=== PATIENT | female | born 1960 | race Caucasian/White ===

== ENCOUNTER 2019-04-20 08:08 | Emergency (ER) | payer MEDICARE, OTHER ==
[2019-04-20 08:17] VITALS: BP 123/66; PULSE 76; TEMP 97.7; BMI 31.1
[2019-04-20] MEDS ORDERED: FAMOTIDINE 20 MG/50 ML IVPB 20 MG/50 ML MG IVPB ONE ×2 (09:28→10:15)
[2019-04-20] MEDS ORDERED: DICYCLOMINE HCL 20 MG TABLET PO ONE (09:28)
[2019-04-20] MEDS ORDERED: ONDANSETRON 4 MG/2 ML VIAL IVPUSH ONE (09:28)
[2019-04-20] MEDS ORDERED: SODIUM CHLORIDE 1,000 ML IV STA (09:28)
--- NOTE | 2019-04-20 09:40 | PDOC ---
History of Present Illness - General History Source: Patient Exam Limitations: No Limitations - History of Present Illness Initial Comments: 04/20/19 09:35 Patient is a 58-year-old female who presents to the ED with complaint of epigastric and left upper quadrant abdominal pain that started at 3 AM. She states the pain woke her up out of sleep. She admits that she felt nauseated and has vomited twice. She denies any blood in her vomitus. She has not had any bowel movements. She denies any fevers or chills. She denies any previous abdominal surgeries. She has not taken anything for pain. She has a history of high blood pressure. She is allergic to hydrocodone and shellfish. She denies any dysuria or hematuria. <Patti Quintero - Last Filed: 04/20/19 17:07> <Ruslan Thurman - Last Filed: 04/21/19 13:13> - General Chief Complaint: Pain, Acute Stated Complaint: ABD. PAIN Time Seen by Provider: 04/20/19 09:05 Past History - Past Medical History COPD: No Dialysis: No HTN: Yes Kidney Stones: No - Surgical History Gastric Stapling: No Lung Surgery: No - Immunization History Immunization Up to Date: No - Psycho Social/Smoking Cessation Hx Smoking History: Never smoked Have you smoked in the past 12 months: No Information on smoking cessation initiated: No Hx Alcohol Use: No Drug/Substance Use Hx: No Substance Use Type: None <Patti Quintero - Last Filed: 04/20/19 17:07> <Ruslan Thurman - Last Filed: 04/21/19 13:13> - Past Medical History Allergies/Adverse Reactions: Allergies Allergy/AdvReac Type Severity Reaction Status Date / Time hydrocodone Allergy Verified 03/08/14 07:23 shellfish derived Allergy Verified 03/08/14 07:23 Home Medications: Ambulatory Orders Duloxetine HCl [Cymbalta -] 60 mg PO DAILY 03/08/14 Amlodipine Besylate 10 mg PO DAILY 02/06/16 Review of Systems - Review of Systems Comments:: 04/20/19 09:36 - Review of Systems Able to Perform ROS?: Yes Constitutional: No: Fever, Chills, Loss of Appetite, Night Sweats, Weakness HEENTM: No: Eye Pain, Vision changes, Ear Pain, Throat Pain, Throat Swelling, Mouth Pain, Difficulty Swallowing Respiratory: No: Cough, Shortness of Breath, Wheezing, Sputum Production Cardiac (ROS): No: Chest Pain, Chest Tightness, Palpitations, Irregular Heart Beat, Edema ABD/GI: No: Nausea, Diarrhea, positive: Vomiting, Abdominal Pain : No Dysuria, No Hematuria, No Frequency, No Urgency Musculoskeletal: No: Muscle Pain, Back Pain, Joint Pain, Muscle Weakness, Neck Pain Integumentary: No: Lesions, Rash Neurological: No: Headache, Numbness, Tingling, Weakness, Speech Difficulties <LeonPatti paez D - Last Filed: 04/20/19 17:07> *Physical Exam - Vital Signs Last Vital Signs Temp Pulse Resp BP Pulse Ox 97.7 F 76 16 123/66 99 04/20/19 08:15 04/20/19 08:15 04/20/19 08:15 04/20/19 08:15 04/20/19 08:15 - Physical Exam 04/20/19 09:36 - Physical Exam General Appearance: Nourished, Appropriately Dressed, No Distress HEENT: EOMI, Normal Voice, No Muffled/Hoarse voice, No Nasal Congestion, No Rhinorrhea, Hearing Grossly Normal Neck: Supple, No Lymphadenopathy (R), No Lymphadenopathy (L), No Rigidity, No Decreased range of motion Respiratory/Chest: Lungs Clear, Normal Breath Sounds. No Respiratory Distress, No Accessory Muscle Use Cardiovascular: Regular Rhythm, Regular Rate, S1, S2 Gastrointestinal/Abdominal: Normal Bowel Sounds, Soft. No Guarding, No Rebound , No Rigidity; positive epigastric and left upper quadrant abdominal tenderness to palpation. No right upper quadrant tenderness to palpation. Negative wilson' s sign Musculoskeletal: Normal Inspection. No Decreased Range of Motion Extremity: Normal Capillary Refill, Normal Inspection Integumentary: Normal Color, Dry. No Rash Neurologic: supervisor residential II-XII NML intact, Fully Oriented, Alert, Normal Mood/Affect, Normal Response <Leon,Patti D - Last Filed: 04/20/19 17:07> - Vital Signs Last Vital Signs Temp Pulse Resp BP Pulse Ox 97.7 F 76 16 123/66 99 04/20/19 08:15 04/20/19 08:15 04/20/19 08:15 04/20/19 08:15 04/20/19 08:15 <Cuca,Ruslan - Last Filed: 04/21/19 13:13> ED Treatment Course - LABORATORY CBC & Chemistry Diagram: 04/20/19 09:50 04/20/19 09:50 - RADIOLOGY Radiology Studies Ordered: Category Date Time Status ABDOMEN & PELVIS CT WITH CONTR [CT] Stat CT Scan 04/20/19 09:30 Ordered <Patti Quintero - Last Filed: 04/20/19 17:07> - LABORATORY CBC & Chemistry Diagram: 04/20/19 09:50 04/20/19 09:50 - ADDITIONAL ORDERS Additional order review: 04/20/19 09:50 RBC 4.64 MCV 82.0 MCHC 32.6 RDW 13.4 MPV 8.4 Neutrophils % 68.3 Lymphocytes % 25.5 D Monocytes % 5.0 Eosinophils % 0.8 D Basophils % 0.4 - Medications Given in the ED: ED Medications Discontinued Medications Generic Name Dose Route Start Last Admin Trade Name Freq PRN Reason Stop Dose Admin Dicyclomine HCl 20 mg 04/20/19 09:28 04/20/19 10:27 Bentyl - PO 04/20/19 09:29 20 mg ONCE ONE Administration Famotidine/Sodium Chloride 20 mg in 50 mls @ 100 mls/hr 04/20/19 09:28 10:27 Pepcid 20 Mg Premixed Ivpb - IVPB 04/20/19 09:57 100 mls/hr ONCE ONE Administration Sodium Chloride 1,000 mls @ 1,000 mls/hr 04/20/19 09:28 04/20/19 10:27 Normal Saline - IV 04/20/19 10:27 1,000 mls/hr ASDIR STA Administration Ondansetron HCl 4 mg 04/20/19 09:28 04/20/19 10:27 Zofran Injection IVPUSH 04/20/19 09:29 4 mg ONCE ONE Administration <Ruslan Thurman - Last Filed: 04/21/19 13:13> Medical Decision Making - Medical Decision Making 04/20/19 09:38 Assessment: Patient is a 58-year-old female with epigastric and left upper quadrant abdominal pain. Plan: -Labs ordered -EKG ordered -Pepcid, Bentyl and Zofran ordered -Will reassess 04/20/19 11:37 The patient states she is feeling much better after the medication the fluids. She is still pending her CT scan. Will reassess after CT scan is completed. 04/20/19 15:[address] Fontenot of surgery for consultation. The patient has what appears to be cholecystitis on US with a Gall bladder neck stone. The findings are relatively unchanged from studies in 2016. 04/20/19 15:39 Dr. Fontenot returned call, she states that the patient's ultrasound is unchanged from 2016 and she reviewed it herself. The patient's labs are all within normal limits and secondary to her not having any pain, she feels this is not something that requires emergent surgery or intervention. Dr. Fontenot will come down and evaluate the patient. 04/20/19 16:51 The patient was seen by Dr. Fontenot and she believes that secondary to the patient not having any pain, her labs being within normal limits and her studies being unchanged from 2016, this does not warrant an emergent cholecystectomy. The patient should follow-up with her primary doctor and potentially a GI doctor for further evaluation and treatment. If the patient's pain returns she can return to the ED for repeat evaluation. The patient will try a p.o. challenge at this time and if she is able to tolerate p.o. fluids she can be discharged home with follow-up to her primary doctor. The patient understands and agrees with this treatment and plan. 04/20/19 17:07 The patient tolerated fluids in the ED and she is stable for discharge. She should follow-up with her primary doctor within 1 to 2 days for repeat evaluation. She understands and agrees with this treatment plan and she is stable for discharge. <Patti Quintero D - Last Filed: 04/20/19 17:07> - Medical Decision Making 04/21/19 13:04 58 years old presents to the ED with epigastric discomfort received GI cocktail and imaging Epigastric discomfort has resolved Her physical examination was notable for a benign abdominal exam no rebound no guarding no right upper quadrant pain no tenderness to palpation. Her laboratory analysis showed no elevated WC her LFTs were normal her ultrasound did show a stone with thickening of the gallbladder wall which was unchanged from a previous ultrasound surgery was consulted given no pain no laboratory abnormalities and a normal abdominal examination decision was made that this is most likely a chronic process she will follow-up as an outpatient she will return to the ED immediately for any fever severe worsening pain or for any concerns Findings, the need for follow-up and strict return instructions discussed with patient. <CucaRuslan - Last Filed: 04/21/19 13:13> Discharge - Discharge Information Problems reviewed: Yes <Patti Quintero - Last Filed: 04/20/19 17:07> <Ruslan Thurman - Last Filed: 04/21/19 13:13> - Discharge Information Clinical Impression/Diagnosis: Epigastric abdominal pain Condition: Stable Disposition: HOME - Follow up/Referral Referrals: Ed Márquez MD [Primary Care Provider] - 2 Days - Patient Discharge Instructions Patient Printed Discharge Instructions: DI for Abdominal Pain-Adult, DI for Biliary Colic Additional Instructions: Eat a bland diet and avoid fatty, acidic, fried, greasy or caffeinated foods. Be sure to see your primary doctor within 1 to 2 days for repeat evaluation. You may need to see a GI doctor for further evaluation. You may need your gallbladder removed at some point and can follow-up with an outpatient surgeon as needed. Return to the emergency department for high fevers, shaking chills, profuse vomiting or any other worsening symptoms. Print Language: THAI - Post Discharge Activity
[2019-04-20] MEDS ORDERED: DICYCLOMINE HCL 10 MG CAPSULE ONE (10:14)
[2019-04-20] MEDS ORDERED: ONDANSETRON 4 MG/2 ML VIAL ONE (10:15)
[2019-04-20 10:20] LABS: BASO % 0.4 % (0-2.0); EOS % 0.8 % (0-4.5); HEMOGLOBIN 12.4 GM/dL (10.7-15.3); LYMPH % 25.5 % (8-40); MCH 26.7 pg (25.7-33.7); MCHC 32.6 g/dl (32.0-36.0); MEAN PLT VOLUME 8.4 fl (7.5-11.1); NEUT % 68.3 % (42.8-82.8); PLATELET COUNT 303 K/MM3 (134-434); RBC 4.64 M/mm3 (3.60-5.2); RDW 13.4 % (11.6-15.6); WHITE BLOOD COUNT 6.4 K/mm3 (4.0-10.0)
[2019-04-20 10:45] LABS: ALBUMIN 4.3 g/dl (3.4-5.0); BILIRUBIN,TOTAL 0.5 mg/dL (0.2-1); BLOOD UREA NITROGEN 13.1 mg/dL (7-18); CALCIUM 9.4 mg/dL (8.5-10.1); CREATININE 0.7 mg/dL (0.55-1.3); POTASSIUM 4.3 mmol/L (3.5-5.1); TOT PROT 8.2 g/dl (6.4-8.2)
--- NOTE | 2019-04-20 14:29 | EKG ---
Test Reason : Blood Pressure : / mmHG Vent. Rate : 073 BPM Atrial Rate : 073 BPM P-R Int : 162 ms QRS Dur : 070 ms QT Int : 380 ms P-R-T Axes : 028 023 013 degrees QTc Int : 418 ms NORMAL SINUS RHYTHM NORMAL ECG NO PREVIOUS ECGS AVAILABLE Confirmed by Alberta Brownlee ([id number]) on 04/20/2019 2:29:22 PM Referred By: Confirmed By:Alberta Brownlee
--- NOTE | 2019-04-20 16:59 | CONSULT ---
Consult Consult Specialty:: General Surgery Referred by:: DIONNE Castle Reason for Consultation:: epigastric pain, LUQ tenderness, gallstone - History of Present Illness Chief Complaint: upper abdominal pain History of Present Illness: 58yo F with HTN, chronic low back pain s/p lumbar surgery, h/o laparoscopic tubal ligation, presented with epigastric pain radiating bilaterally which woke her up around 3am. She took baking soda with water, and vomited a few minutes later, but denies nausea otherwise. Had normal soft BM today. No fever or chills, no ill contacts; she denies symptoms of heartburn historically. In the ER, she is afebrile, with normal labs including wbc, LFTs and lipase. CT and US show gallbladder with a moderate sized stone in the neck, mild wall thickening and some pericholecystic fluid suggestive of cholecystitis , but images are unchanged from US 02/09, when she had same findings. CBD is upper normal at 6mm. She has had IV fluids, GI cocktail, and her pain is now gone. Surgery was asked to assess. She is seen and examined in ER, and is able to communicate in Albanian well enough. She states the pain was sharp, and worse than the pain that had brought her in 02/09, though that was also across her upper abdomen. ER exam showed LUQ and epigastric tenderness, but no RUQ tenderness. She denies nausea, and is willing to try eating. - History Source History Provided By: Patient Limitations to Obtaining History: Language Barrier (Ivorian, pt also speaks Albanian) - Past Medical History Cardio/Vascular: Yes: HTN Hepatobiliary: Yes: Cholelithiasis ...: No Psych: Yes: Depression Musculoskeletal: Yes: Chronic low back pain - Past Surgical History Past Surgical History: Yes: Tubal Ligation Additional Surgical History: lumbar spine surgery - Alcohol/Substance Use Hx Alcohol Use: No (rarely) History of Substance Use: reports: None - Smoking History Smoking history: Never smoked Have you smoked in the past 12 months: No - Social History ADL: Independent Home Medications - Allergies Allergies/Adverse Reactions: Allergies Allergy/AdvReac Type Severity Reaction Status Date / Time hydrocodone Allergy Verified 03/08/14 07:23 shellfish derived Allergy Verified 03/08/14 07:23 - Home Medications Home Medications: Ambulatory Orders Duloxetine HCl [Cymbalta -] 60 mg PO DAILY 03/08/14 Amlodipine Besylate 10 mg PO DAILY 02/06/16 Home Medications (free text): pt no longer taking Cymbalta - caused itching everywhere. uses Tylenol XS 1-2 a day for low back pain. also on Carvedilol but hasn't taken it for a few days Family Medical History Other Family History: mother with hypertension, in her sleep Review of Systems - Review of Systems Constitutional: denies: Chills, Fever Eyes: denies: Blurred Vision, Recent Change in Vision HENT: denies: Difficult Swallowing, Throat Pain Neck: denies: Swollen Glands, Tenderness Cardiovascular: denies: Chest Pain, Palpitations Respiratory: denies: Cough (denies, but had a small cough during exam), SOB Gastrointestinal: reports: Abdominal Pain (with hpi), Vomiting ((once, induced by drinking baking soda and water)). denies: Constipation, Diarrhea, Nausea ( denies) Genitourinary: denies: Burning, Dysuria Musculoskeletal: reports: Back Pain (chronic). denies: Joint Pain, Muscle Pain Integumentary: denies: Change in Color, Rash Neurological: denies: Dizziness, Headache Physical Exam Vital Signs: Vital Signs Temperature 97.7 F 04/20/19 08:15 Pulse Rate 76 04/20/19 08:15 Respiratory Rate 16 04/20/19 08:15 Blood Pressure 123/66 04/20/19 08:15 O2 Sat by Pulse Oximetry (%) 99 04/20/19 08:15 Constitutional: Yes: No Distress, Calm, Obese Eyes: Yes: Conjunctiva Clear, EOM Intact. No: Sclera Icterus HENT: Yes: Atraumatic, Normocephalic Neck: Yes: Supple, Trachea Midline Cardiovascular: Yes: Regular Rate and Rhythm Respiratory: Yes: Regular, CTA Bilaterally Gastrointestinal: Yes: Soft, Abdomen, Obese, Hypoactive Bowel Sounds, Tenderness , Epigastrium (mild/minimal). No: Tenderness ...Rectal Exam: Yes: Deferred Renal/: No: CVA Tenderness - Left, CVA Tenderness - Right Musculoskeletal: No: Back Pain (no direct tenderness), Joint Swelling Extremities: No: Cool, Cyanosis Edema: No Peripheral Pulses WNL: Yes Integumentary: No: Jaundice, Rash Neurological: Yes: Alert, Oriented. No: Unsteady Gait Psychiatric: Yes: Alert, Oriented Labs: CBC, BMP 04/20/19 09:50 04/20/19 09:50 CMP Sodium 140 mmol/L (136-145) 04/20/19 09:50 Potassium 4.3 mmol/L (3.5-5.1) 04/20/19 09:50 Chloride 107 mmol/L (98-107) 04/20/19 09:50 Carbon Dioxide 27 mmol/L (21-32) 04/20/19 09:50 Anion Gap 6 MMOL/L (8-16) L 04/20/19 09:50 BUN 13.1 mg/dL (7-18) 04/20/19 09:50 Creatinine 0.7 mg/dL (0.55-1.3) 04/20/19 09:50 Est GFR (CKD-EPI)AfAm 110.69 04/20/19 09:50 Est GFR (CKD-EPI)NonAf 95.50 04/20/19 09:50 Random Glucose 97 mg/dL (74-106) 04/20/19 09:50 Calcium 9.4 mg/dL (8.5-10.1) 04/20/19 09:50 Total Bilirubin 0.5 mg/dL (0.2-1) 04/20/19 09:50 AST 19 U/L (15-37) 04/20/19 09:50 ALT 26 U/L (13-61) 04/20/19 09:50 Alkaline Phosphatase 117 U/L (45-117) 04/20/19 09:50 Total Protein 8.2 g/dl (6.4-8.2) 04/20/19 09:50 Albumin 4.3 g/dl (3.4-5.0) 04/20/19 09:50 Lipase 119 U/L (73-393) 04/20/19 09:50 no UA labs very close to 02/09 visit - normal both times Imaging - Results Cat Scan: Report Reviewed Ultrasound: Report Reviewed, Image Reviewed (gallstone at neck of gallbladder, 1.5-2cm, with mild wall thickening and a little pericholecystic fluid - images look unchanged from 02/09 study; cbd 6mm, no intrahepatic ductal dilation) Problem List - Problems (1) Calculus of gallbladder without cholecystitis without obstruction Assessment/Plan: gallbladder with stone in neck, unchanged from 3 yrs ago, in context of normal labs both times, no RUQ tenderness pt had epigastric pain radiating bilaterally, LUQ tenderness on earlier ER exam , now resolved after GI cocktail doubt biliary source of acute pain, though it is possible for this stone to cause colic or cholecystitis at some point pain is now completely gone ok for po trial if tolerates, would d/c with close followup by PMD and her other physicians if pain episodes recur in future, she can continue workup with PMD, consider GI workup, and/or see surgeon to discuss considering cholecystectomy gave her my card pt understands and agrees with plan Code(s): K80.20 - CALCULUS OF GALLBLADDER W/O CHOLECYSTITIS W/O OBSTRUCTION (2) Epigastric pain Assessment/Plan: resolved Code(s): R10.13 - EPIGASTRIC PAIN (3) HTN (hypertension) Assessment/Plan: advised not to stop her medication without discussing with her obstetrics teacher Code(s): I10 - ESSENTIAL (PRIMARY) HYPERTENSION Qualifiers: Hypertension type: essential hypertension Qualified Code(s): I10 - Essential (primary) hypertension (4) Class 1 obesity due to excess calories with body mass index (BMI) of 31.0 to 31.9 in adult Code(s): E66.09 - OTHER OBESITY DUE TO EXCESS CALORIES; Z68.31 - BODY MASS INDEX (BMI) 31.0-31.9, ADULT Qualifiers: Serious obesity comorbidity presence: without serious comorbidity Qualified Code(s): E66.09 - Other obesity due to excess calories; Z68.31 - Body mass index (BMI) 31.0-31.9, adult (5) Chronic low back pain Code(s): M54.5 - LOW BACK PAIN; G89.29 - OTHER CHRONIC PAIN Qualifiers: Back pain laterality: unspecified Sciatica presence: without sciatica Qualified Code(s): M54.5 - Low back pain; G89.29 - Other chronic pain
== END 2019-04-20 18:26 | disposition home or self-care (01) ==
LOC: JER 08:08
PROC: 3E033GC Introduction of Other Therapeutic Substance into Peripheral Vein, Percutaneous Approach (ICD-10-PCS; principal; 2019-04-20)
PROC: 3E033GC Introduction of Other Therapeutic Substance into Peripheral Vein, Percutaneous Approach (ICD-10-PCS; 2019-04-20)
DX: K80.20 Calculus of gallbladder without cholecystitis without obstruction (principal); I10 Essential (primary) hypertension; M54.5 Low back pain; G89.29 Other chronic pain; E66.09 Other obesity due to excess calories; Z68.31 Body mass index [BMI] 31.0-31.9, adult
CPT/HCPCS: 36415; 74177-TC; 76705-TC; 80053; 83690; 85025; 93005; 93010; 96365; 96375; 99285-25; J7030; Q9967

== ENCOUNTER 2019-05-05 09:28 | Day surgery (SDC) | payer OTHER ==
[2019-05-05 10:51] VITALS: BMI 32.7
--- NOTE | 2019-05-05 11:45 | HP ---
History & Physical Update - History History: No Change - Physical Physical: No Change - Assessment Assessment: No Change - Plan Plan: No Change (Full H&P in paper chart from 05/04/19)
[2019-05-05] MEDS ORDERED: MIDAZOLAM HCL 2 MG/2 ML SINGLE DOSE VIAL ONE (12:03)
[2019-05-05] MEDS ORDERED: PROPOFOL 20 ML ONE (12:03)
[2019-05-05] MEDS ORDERED: LIDOCAINE HCL/PF 2% SDV 5ML VIAL ONE (12:03)
[2019-05-05] MEDS ORDERED: ROCURONIUM BROMIDE 50 MG/5 ML SYRINGE ONE (12:05)
[2019-05-05] MEDS ORDERED: ceFAZolin SODIUM 1 GM VIAL ONE (12:37)
[2019-05-05] MEDS ORDERED: ceFAZolin SODIUM 1 GM VIAL IVPB ONE (12:39)
[2019-05-05] MEDS ORDERED: BUPIVACAINE HCL/PF 0.5% (5MG/ML) 10 ML VIAL NR ONE (12:50)
[2019-05-05] MEDS ORDERED: DEXAMETHASONE SOD PHOSPHATE 4 MG/1 ML VIAL ONE (12:54)
[2019-05-05] MEDS ORDERED: DESFLURANE GAS 240 ML BOTTLE IH ONE (12:54)
[2019-05-05] MEDS ORDERED: GLYCOPYRROLATE 0.2 MG/1 ML VIAL ONE ×2 (13:03→13:39)
[2019-05-05] MEDS ORDERED: NEOSTIGMINE METHYLSULFATE 0.5 MG/ML - 10 ML MDV ONE (13:04)
--- NOTE | 2019-05-05 13:42 | SURG ---
Surgery Assistant Case Manager Note Assistant Case Manager: Nestor Hernandez PA-C Date of Service: 05/05/19 Diagnosis: biliary colic,cholelithiasis Procedure: laproscopic cholecystectomy I was present for the entirety of the operative procedure. For further detail, please refer to operative report. Visit type - Case Type Case Type: Scheduled - Emergency Emergency Visit: No - New patient This patient is new to me today: Yes Date on this admission: 05/05/19 - Critical Care Critical Care patient: No
--- NOTE | 2019-05-05 13:42 | OP ---
Operative Note - Note: Operative Date: 05/05/19 Pre-Operative Diagnosis: Biliary colic, cholelithiasis Operation: Laproscopic cholecystectomy Post-Operative Diagnosis: Same as Pre-op Surgeon: Haily Martell Operator Catalyst Concentration: Nestor Hernandez Anesthesiologist/SPAR CAP BEVELER: Yola Sheridan Anesthesia: General Estimated Blood Loss (mls): 20 Operative Report Dictated: Yes
[2019-05-05] MEDS ORDERED: ONDANSETRON 4 MG/2 ML VIAL IVPUSH PRN (14:00)
[2019-05-05] MEDS ORDERED: ACETAMINOPHEN 1000 MG/100 ML VIAL (NON FORMULARY) IVPB ONE (14:00)
[2019-05-05] MEDS ORDERED: LACTATED RINGERS SOLUTION 1,000 ML IV SCH (14:00)
[2019-05-05] MEDS ORDERED: IBUPROFEN 800 MG/8 ML IJ IVPB PRN (14:00)
[2019-05-05] MEDS ORDERED: ONDANSETRON 4 MG/2 ML VIAL ONE (16:27)
[2019-05-05 18:35] VITALS: BP 137/90; PULSE 75; TEMP 97.8
--- NOTE | 2019-05-08 17:31 | PATH ---
Surgical Pathology Report Patient Name: ALECIA LYNNE [facility]. Rec. #: [id number] /Age/Gender: 1960 (Age: 58) / F Account: [id number] Location: [facility] SURGICAL Taken: 05/05/2019 Received: 05/06/2019 Reported: 05/08/2019 Physicians: Haily Martell M.D. Specimen(s) Received GALLBLADDER Clinical History Cholelithiasis Final Diagnosis GALLBLADDER, CHOLECYSTECTOMY: CHRONIC CHOLECYSTITIS AND CHOLESTEROLOSIS. CHOLELITHIASIS. Electronically Signed Bryn An M.D. Gross Description Received in formalin, labeled "gallbladder," is a 6.6 x 2.4 x 2.2 cm. gallbladder with a 0.2 cm. in length portion of cystic duct attached. The outer surface is grewal green and varies from smooth to shaggy. The lumen contains green, tenacious bile as well as a 2.4 cm in greatest dimension grewal, ovoid cholelith. The mucosa is green and velvety with focal erosion. The wall of the gallbladder ranges from 0.1-0.3 cm. in thickness. Equal Opportunity Assistant sections are submitted in one cassette. 05/07/2019 [facility]05/07/2019
--- NOTE | 2019-05-25 15:49 | OP ---
DATE OF OPERATION: 05/05/2019 PREOPERATIVE DIAGNOSIS: Cholelithiasis, cholecystitis. POSTOPERATIVE DIAGNOSIS: Cholelithiasis, cholecystitis. OPERATIVE PROCEDURE: Laparoscopic cholecystectomy. SURGEON: Vlad Martell MD CUSTOMER ADVISOR: DIONNE Pickens ANESTHESIA: General endotracheal intubation. INDICATIONS: Patient was admitted with abdominal pain, nausea and vomiting, 2 episodes of biliary colic and the preoperative sonogram revealed multiple stones with chronic cholecystitis and some thickened gallbladder wall. DESCRIPTION: With this, the patient was brought into the operating room. Abdomen was prepped and draped. Intravenous antibiotic was given. General anesthesia was administered and 4 percutaneous punctures were made, three punctures percutaneously. With direct vision two of the 5-mm ports were placed, one in the midline below the xiphoid and two on the lateral, and through the umbilical port through the open technique pneumoperitoneum was obtained and Love cannula was placed. Once the gallbladder was identified, it was found to be adherent to the omentum and this was grasped and dissected away from the gallbladder and the neck of the gallbladder and the fundus of the gallbladder were both grasped and retracted upwards laterally and downwards the cystic artery and duct were identified clearly. It was dissected from the common duct. Once the triangle was clearly identified to make sure there was no common duct, the clips were placed, two on the patient's side and one on the specimen side and the gallbladder was removed. The cystic artery was divided, and similarly the cystic artery was clearly identified and clipped and divided, and the gallbladder was removed from the liver bed using spatula and it was placed into the Endobag and removed through the abdominal port. No complications were encountered. Fascia was closed with 0 Vicryl and patient went to the recovery room. VLAD MARTELL M.D. [id number]
== END 2019-05-05 18:10 | disposition home or self-care (01) ==
LOC: JASU-SURG 09:28
PROVIDERS: ATTEND Surgery Vascular Surgery
PROC: 0FT44ZZ Resection of Gallbladder, Percutaneous Endoscopic Approach (ICD-10-PCS; principal; 2019-05-05 11:30)
DX: K80.10 Calculus of gallbladder with chronic cholecystitis without obstruction (principal)
CPT/HCPCS: 88304-TC; 94760; J0131

== ENCOUNTER 2021-09-14 04:08 | Day surgery (SDC) | payer OTHER ==
[2021-09-14 10:54] VITALS: BMI 29.6
[2021-09-14] MEDS ORDERED: BUPIVACAINE HCL/PF 0.5% (5MG/ML) 10 ML VIAL ONE (12:37)
[2021-09-14] MEDS ORDERED: PROPOFOL 20 ML ONE ×2 (13:18→15:19)
[2021-09-14] MEDS ORDERED: MIDAZOLAM HCL 2 MG/2 ML SINGLE DOSE VIAL ONE (13:18)
[2021-09-14] MEDS ORDERED: LIDOCAINE HCL 1%, 10 MG/ML (20ML VIAL) ONE (14:31)
[2021-09-14] MEDS ORDERED: BUPIVACAINE HCL/PF 0.25% (2.5MG/ML) 10 ML VIAL ONE (14:32)
[2021-09-14] MEDS ORDERED: ceFAZolin 2 GRAM PREMIX BAG IVPB ONE (14:52)
[2021-09-14] MEDS ORDERED: DEXAMETHASONE SOD PHOSPHATE 4 MG/1 ML VIAL ONE (15:03)
[2021-09-14] MEDS ORDERED: KETOROLAC TROMETHAMINE 30 MG/1 ML VIAL ONE (15:17)
[2021-09-14] MEDS ORDERED: ONDANSETRON 4 MG/2 ML VIAL IVPUSH PRN (15:21)
[2021-09-14] MEDS ORDERED: ACETAMINOPHEN 500 MG TABLET (FP) PO PRN (15:21)
[2021-09-14] MEDS ORDERED: LACTATED RINGERS SOLUTION 1,000 ML IV SCH (15:30)
[2021-09-14 18:11] VITALS: TEMP 97.2
[2021-09-14 18:13] VITALS: BP 145/77; PULSE 65
== END 2021-09-14 18:00 | disposition home or self-care (01) ==
LOC: JASU-SURG 04:08
PROVIDERS: ATTEND Surgery Vascular Surgery
PROC: 0WUF0JZ Supplement Abdominal Wall with Synthetic Substitute, Open Approach (ICD-10-PCS; principal; 2021-09-14 14:53)
DX: K43.2 Incisional hernia without obstruction or gangrene (principal)
CPT/HCPCS: 94760